=== PATIENT | male | born 1975 | race Caucasian/White ===

== ENCOUNTER → 2023-08-31 10:18 | Outpatient (REF) | payer OTHER, SELFPAY | LOC: PAVMRI 10:18 | PROVIDERS: ATTENDING PHYSICIAN Psychiatry & Neurology Neurology; FAMILY PHYSICIAN Internal Medicine | DX: M54.50 Low back pain, unspecified (principal); M54.17 Radiculopathy, lumbosacral region | CPT/HCPCS: 72158 ==

== ENCOUNTER → 2024-12-02 13:41 | Outpatient (REF) | payer OTHER, SELFPAY ==
[2024-12-02 14:53] LABS: Blood Urea Nitrogen 16 mg/dl (9-20)
== END ==
LOC: RAD 13:41
PROVIDERS: ATTENDING PHYSICIAN Psychiatry & Neurology Neurology; REFERRING PHYSICIAN Physician Assistant Surgical
DX: M96.1 Postlaminectomy syndrome, not elsewhere classified (principal); M54.14 Radiculopathy, thoracic region; N18.9 Chronic kidney disease, unspecified
CPT/HCPCS: 36415; 71046; 72072; 82565; 84520

== ENCOUNTER → 2025-02-03 09:26 | Outpatient (REF) | payer OTHER, SELFPAY | LOC: PAVMRI 09:26 | PROVIDERS: ATTENDING PHYSICIAN Physician Assistant Surgical; FAMILY PHYSICIAN Internal Medicine | DX: M54.51 Vertebrogenic low back pain (principal); M96.1 Postlaminectomy syndrome, not elsewhere classified | CPT/HCPCS: 72158; 76014; 76015; A9575 ==

== ENCOUNTER → 2025-02-04 10:15 | Outpatient (REF) | payer OTHER, SELFPAY | LOC: PAVMRI 10:15 | PROVIDERS: ATTENDING PHYSICIAN Physician Assistant Surgical; FAMILY PHYSICIAN Internal Medicine | DX: M54.12 Radiculopathy, cervical region (principal) | CPT/HCPCS: 72156; A9575 ==